=== PATIENT | female | born 1955 | race Caucasian/White ===

== ENCOUNTER 2018-04-08 05:20 | Emergency (ER) | payer BC, SELFPAY ==
[2018-04-08 05:35] VITALS: BP 131/69; PULSE 68; RESP 15; TEMP 36.5; O2SAT 97; BMI 40.6
--- NOTE | 2018-04-08 05:56 | ED.ALLEREA ---
HPI - Allergic Reaction General Chief complaint: Allergic Reaction Stated complaint: Hives all over now with swelling Time Seen by Provider: 04/08/18 05:56 Source: patient Mode of arrival: ambulatory Limitations: no limitations History of Present Illness HPI narrative: The patient complains of an allergic reaction. She has welts across her face, neck, torso and extremities. She denies airway tightness. She has no cough, dyspnea, or chest discomfort. She has no nausea or GI symptoms. The rash is migratory. She had swelling to the upper lip earlier tonight. She has no associated fever. 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 She does experience a similar rash when in [place], the rash is more severe here in [facility]. she 1st encountered the rash November 2017. she has seen a medical assistant in [place]. She takes antihistamines daily. She is previously spine well to a [employer] for [employer]. She has no significant recent medication changes. She does not know stressors/anxiety issues. Related Data Home Medications Medication Instructions Recorded Confirmed ascorbic acid (vitamin C) 500 mg mg PO cap 01/08/18 01/10/18 capsule calcium carbonate 500 mg calcium 500 mg PO BID tab 01/08/18 01/10/18 (1,250 mg) chewable tablet cholecalciferol (vitamin D3) 2,000 2,000 unit PO DAILY 01/08/18 01/10/18 unit capsule krill oil 500 mg capsule mg PO cap 01/08/18 01/10/18 magnesium oxide 400 mg capsule 400 mg PO DAILY cap 01/08/18 01/10/18 vitamin B complex tablet 1 tab PO DAILY 01/08/18 01/10/18 vitamin E (dl, acetate) 100 unit unit PO cap 01/08/18 01/10/18 capsule Previous Rx's Medication Instructions Recorded cetirizine 10 mg capsule 20 mg PO BID PRN #60 cap 01/08/18 hydroxyzine HCl 25 mg tablet 25 mg PO TID PRN #60 tab 01/08/18 triamcinolone acetonide 0.5 % 1 applictn TOP BID #15 gram 01/10/18 topical ointment methylprednisolone [Medrol (Edgardo)] See Label Instructions PO PER PKG 04/08/18 DIR #21 each Allergies Allergy/AdvReac Type Severity Reaction Status Date / Time No Known Drug Allergies Allergy Verified 08/01/18 05:35 Review of Systems Review of Systems All systems reviewed & are unremarkable except as noted in HPI and below Constitutional Denies chills, Denies fever(s), Denies lethargy and Denies weakness Eyes Denies eye discharge ENT Ears, Nose, Mouth, and Throat: Denies dizziness, Reports lip swelling, Denies mouth lesions, Denies mouth pain, Denies nasal discharge, Denies post nasal drip and Denies throat swelling Cardiovascular Denies chest pain, Denies syncope, Denies irregular heart rhythm, Denies lightheadedness, Denies palpitations, Denies dyspnea, Denies dyspnea on exertion and Denies orthopnea Respiratory Denies cough, Denies dyspnea, Denies dyspnea on exertion and Denies wheezing Gastrointestinal Gastrointestinal: Denies abdominal pain, Denies change in bowel habits, Denies diarrhea, Denies nausea and Denies vomiting Musculoskeletal Denies back pain, Denies muscle weakness, Denies numbness and Denies tingling Integumentary/Breasts Denies pruritus, Reports erythema, Reports rash, Denies skin swelling, Denies skin ulcer, Denies sores and Denies wounds Neurologic Denies confusion, Denies dizziness, Denies syncope, Denies numbness, Denies tingling and Denies weakness Psychiatric Denies confusion Endocrine Denies palpitations Allergic/Immunologic Reports lip swelling, Denies throat swelling and Denies wheezing [facility] Social History Smoking Status: Never smoker Exam Initial Vital Signs Initial Vital Signs: Vital Signs Temperature 97.7 F 04/08/18 05:35 Pulse Rate 68 04/08/18 05:35 Respiratory Rate 15 04/08/18 05:35 Blood Pressure 131/69 H 04/08/18 05:35 Pulse Oximetry 97 04/08/18 05:35 Const General: cooperative, comfortable and well developed Nutritional Appearance: well nourished Orientation: alert, awake and oriented x3 HENMT Mouth: oral mucosae normal, lip normal and tongue normal Throat: posterior oropharynx normal Eyes Conjunctivae: conjunctivae normal Neck Neck: no meningeal signs Thyroid: thyroid normal Chest Chest: normal inspection of the chest Resp Effort & Inspection: normal respiratory effort and able to speak in complete sentences Auscultation: clear to auscultation bilaterally, no rales, no rhonchi and no wheezes Cardio Rate: regular rate Rhythm: regular rhythm Heart Sounds: no click, no gallops, no murmurs and no rubs Pulses: normal peripheral pulses Back/Spine/Pelvis Back: No CVA tenderness Thoracic/Lumbar Spine: thoracic and lumbar spine normal to inspection Skin General: turgor normal, No atrophy, No crusts, No ecchymosis, No purpura and other ( Urticaria across her face, neck, torso and extremities. The rash does katie.) Course Orders Ordered: Discontinued Medications Prednisone (Deltasone) 60 mg PO NOW ONE Stop: 04/08/18 06:05 Last Admin: 04/08/18 06:06 Dose: 60 mg Vital Signs - 8 hr 04/08/18 05:35 Temperature 97.7 F Pulse Rate 68 Respiratory Rate 15 Blood Pressure 131/69 H Pulse Oximetry 97 Discharge Plan Departure Patient Disposition: Home, Self-Care Clinical Impression: Urticaria Discharge Date/Time: 04/08/18 06:13 Instructions: How to Reduce Environmental Allergens Prescriptions: New methylprednisolone [Medrol (Edgardo)] 4 mg tablets,dose pack See Label Instructions PO PER PKG DIR Qty: 21 RF: 0 No Action vitamin B complex [B Complex-Vitamin B12] tablet 1 tab PO DAILY RF: 0 calcium carbonate [Calci-Chew] 500 mg calcium (1,250 mg) tablet,chewable 500 mg PO BID RF: 0 vitamin E (dl, acetate) 100 unit capsule PO RF: 0 cholecalciferol (vitamin D3) 2,000 unit capsule 2,000 unit PO DAILY RF: 0 krill oil 500 mg capsule PO RF: 0 magnesium oxide 400 mg capsule 400 mg PO DAILY RF: 0 ascorbic acid (vitamin C) 500 mg capsule PO RF: 0 hydroxyzine HCl 25 mg tablet 25 mg PO TID PRN (Reason: itching, urticaria) Qty: 60 RF: 0 cetirizine 10 mg capsule 20 mg PO BID PRN (Reason: urticaria) Qty: 60 RF: 1 triamcinolone acetonide 0.5 % ointment 1 applictn TOP BID Qty: 15 RF: 0
[2018-04-08] MEDS: predniSONE 20 MG TABLET 60 MG PO (06:06)
== END 2018-04-08 06:13 | disposition home or self-care (01) ==
PROVIDERS: Emergency Provider Emergency Medicine
DX: L50.9 Urticaria, unspecified (principal)
CPT/HCPCS: 99282; 99283